=== PATIENT | male | born 1955 | race Caucasian/White ===

== ENCOUNTER 2019-07-16 12:20 | Outpatient (CLI) | payer BC ==
--- NOTE | 2019-07-16 13:51 | Diagnostic Imaging Report ---
Indication: Dyspnea Technique: 2 views of the chest Comparison: None Findings: The right hemidiaphragm is elevated. The lungs pleural spaces are clear. Atelectatic changes are seen on the left. Impression: No acute process
== END 2019-07-16 14:20 | disposition home or self-care (01) ==
LOC: RAD 12:20
DX: R06.00 Dyspnea, unspecified (principal); R53.83 Other fatigue; R06.02 Shortness of breath; R09.89 Other specified symptoms and signs involving the circulatory and respiratory systems; B20 Human immunodeficiency virus [HIV] disease
CPT/HCPCS: 71046